=== PATIENT | female | born 1995 | race Caucasian/White ===

== ENCOUNTER 2021-11-21 14:27 | Outpatient (CLI) | payer BC | END 2021-11-21 14:28 | disposition home or self-care (01) | LOC: CSHMRI 14:27 | PROVIDERS: ATTEND Urology | DX: N36.8 Other specified disorders of urethra (principal); N89.8 Other specified noninflammatory disorders of vagina | CPT/HCPCS: 72197 ==

== ENCOUNTER 2022-03-18 13:07 | Outpatient (CLI) | payer OTHER | END 2022-03-18 13:08 | disposition home or self-care (01) | LOC: CSHULT 13:07 | PROVIDERS: ATTEND Family Medicine | DX: Z34.02 Encounter for supervision of normal first pregnancy, second trimester (principal); Z3A.20 20 weeks gestation of pregnancy | CPT/HCPCS: 76805 ==

== ENCOUNTER 2022-08-06 13:55 | Inpatient (IN) | payer OTHER ==
[2022-08-06 21:07] VITALS: BMI 25.4
[2022-08-06] MEDS ORDERED: Acetaminophen 500 MG TAB PO PRN (21:11)
[2022-08-06] MEDS ORDERED: Butorphanol Tartrate 1 MG/ML VIAL SLOW IVP PRN (21:11)
[2022-08-06] MEDS ORDERED: Ondansetron PF 4 MG/2 ML Vial IVP PRN (21:11)
[2022-08-06] MEDS ORDERED: Methylergonovine 0.2 MG/ML VIAL IM PRN (21:11)
[2022-08-06] MEDS ORDERED: Lidocaine 1% (PF) 30 ML VIAL SC PRN (21:11)
[2022-08-06] MEDS ORDERED: hydrALAZINE 20 MG/ML VIAL SLOW IVP PRN (21:11)
[2022-08-06] MEDS ORDERED: Tranexamic Acid 1,000 MG in Sodium Chloride 0.9% 250 ML 250 ML IVPB PRN (21:11)
[2022-08-06] MEDS ORDERED: Ibuprofen 800 MG TAB PO PRN (21:11)
[2022-08-06] MEDS ORDERED: Diphenoxylate HCl/Atropine Tablet PO PRN (21:11)
[2022-08-06] MEDS ORDERED: Misoprostol 200 MCG TAB PR PRN (21:11)
[2022-08-06] MEDS ORDERED: NS w/ Oxytocin 30 units 500 ML IV SCH (21:11)
[2022-08-06] MEDS ORDERED: Promethazine HCl 25 MG/ML VIAL IM PRN (21:11)
[2022-08-06] MEDS ORDERED: HYDROcodone/Acetaminophen 5/325 mg Tablet PO PRN (21:11)
[2022-08-06] MEDS ORDERED: Carboprost 250 MCG/ML AMP IM PRN (21:11)
[2022-08-06] MEDS: Lactated Ringer's 1,000 ML IV SCH (21:41)
[2022-08-06 22:03] LABS: Hemoglobin 9.4 g/dL (12.0-15.5); Mean Corpuscular HGB CONC 35.1 g/dL (32.0-36.0); Mean Corpuscular Hemoglobin 32.6 pg (27.0-33.0); Mean Corpuscular Volume 93.1 fl (81.6-98.3); Mean Platelet Volume 12.1 fl (7.4-10.4); Platelet Count 166 10x3/uL (150-450); RBC Distribution Width 12.3 % (11.5-14.5); Red Blood Cell (RBC) Count 2.88 10x6/uL (3.90-5.03); White Blood Cell (WBC) Count 8.7 10x3/uL (3.5-10.5)
[2022-08-06 23:01] LABS: SARS-CoV-2 NAA Rapid Test Not Detected (NotDetected)
[2022-08-06 23:38] LABS: Syphilis Antibody Nonreactive (Nonreactive); Syphilis Antibody Index 0.03 S/CO (<1.00 Non-Reactive)
[2022-08-06 23:40] LABS: HBSAg Index 0.16 S/CO (0-0.99); Hep B Surf Ag Non-Reactive S/CO (NonReactive)
[2022-08-07] MEDS: Misoprostol 100 MCG TAB VAG SCH (00:01)
[2022-08-07] MEDS: Lactated Ringer's 1,000 ML IV SCH (03:56)
[2022-08-07] MEDS ORDERED: Fentanyl 2 mcg/Bup 0.1% Cadd 100 ML ONE (09:44)
[2022-08-07] MEDS ORDERED: diphenhydrAMINE 50 MG/ML VIAL IVP PRN ×2 (10:23→18:24)
[2022-08-07] MEDS ORDERED: ePHEDrine Sulfate 50 MG/10 ML VIAL SLOW IVP PRN (10:23)
[2022-08-07] MEDS ORDERED: Moisturizing Cream (Eucerin) 113 GM JAR TOP PRN ×2 (10:23→18:24)
[2022-08-07] MEDS ORDERED: Lactated Ringer's 500 ML IV PRN (10:23)
[2022-08-07] MEDS ORDERED: Promethazine HCl 25 MG/ML VIAL IM PRN ×3 (10:23→22:31)
[2022-08-07] MEDS ORDERED: Naloxone HCl 0.4 mg/ml Vial IVP PRN ×4 (10:23→18:24)
[2022-08-07] MEDS ORDERED: Acetaminophen 325 MG TAB PO PRN (10:23)
[2022-08-07] MEDS ORDERED: Ondansetron PF 4 MG/2 ML Vial IVP PRN ×3 (10:23→22:31)
[2022-08-07] MEDS ORDERED: Communication Order-Pharmacy FS SCH ×2 (10:30→18:30)
[2022-08-07] MEDS ORDERED: Fentanyl 2 mcg/Bupivacaine 0.1% Cassette 100 ML EPIDURAL SCH (10:30)
[2022-08-07] MEDS ORDERED: CEFAZOLIN 2 GM VIAL ONE (17:14)
[2022-08-07] MEDS ORDERED: Azithromycin 500 MG VIAL ONE (17:14)
[2022-08-07] MEDS ORDERED: CEFAZOLIN 2 GM in Sodium Chloride 0.9% 100 ML IVPB SCH (17:15)
[2022-08-07] MEDS ORDERED: Famotidine/PF 20 mg/2ml Vial SLOW IVP PRN (17:15)
[2022-08-07] MEDS ORDERED: Azithromycin 500 MG in Sodium Chloride 0.9% 250 ML 250 ML IVPB SCH (17:15)
[2022-08-07] MEDS ORDERED: Bicitra 30 ML UDCUP PO PRN (17:15)
[2022-08-07] MEDS ORDERED: Bupivacaine PF 0.5% 30 ML VIAL ONE (17:17)
[2022-08-07] MEDS ORDERED: Lidocaine 2% PF 100 mg/5 ml Syringe ONE (17:17)
[2022-08-07] MEDS ORDERED: Fentanyl 100 MCG/2 ML VIAL ONE (17:18)
[2022-08-07] MEDS ORDERED: Phenylephrine 10 MG/ML VIAL ONE (17:39)
[2022-08-07] MEDS ORDERED: Oxytocin 10 UNITS/ML VIAL ONE (17:40)
[2022-08-07] MEDS ORDERED: Morphine PF 10 MG/10 ML VIAL ONE (18:04)
[2022-08-07] MEDS ORDERED: Naloxone HCl 0.4 mg/ml Vial IV PRN (18:24)
[2022-08-07] MEDS ORDERED: Promethazine HCl 25 MG SUPP PR PRN (18:24)
[2022-08-07] MEDS ORDERED: Ketorolac Tromethamine 30 MG/ML VIAL IVP PRN (18:24)
[2022-08-07] MEDS ORDERED: Ketorolac Tromethamine 30 MG/ML VIAL ONE (18:33)
[2022-08-07] MEDS ORDERED: Bisacodyl 10 MG SUPP PR PRN (22:31)
[2022-08-07] MEDS ORDERED: NS w/ Oxytocin 30 units 500 ML IV SCH (22:31)
[2022-08-07] MEDS ORDERED: Boostrix 0.5 ML (Tdap) VIAL (>/=7 yrs of age) IM ONE (22:31)
[2022-08-07] MEDS ORDERED: diphenhydrAMINE 25 MG CAP PO PRN (22:31)
[2022-08-07] MEDS ORDERED: hydrALAZINE 20 MG/ML VIAL SLOW IVP PRN (22:31)
[2022-08-07] MEDS ORDERED: Ferrous Sulfate 325 MG TAB PO SCH (22:45)
[2022-08-07] MEDS ORDERED: Docusate 100 MG CAP PO SCH (22:45)
[2022-08-07] MEDS: Simethicone Chewable 80 MG TAB PO PRN (23:59)
[2022-08-07] MEDS: Ketorolac Tromethamine 30 MG/ML VIAL IVP SCH (23:59)
[2022-08-08 04:06] LABS: Hemoglobin 8.1 g/dL (12.0-15.5); Mean Corpuscular HGB CONC 35.7 g/dL (32.0-36.0); Mean Corpuscular Hemoglobin 32.7 pg (27.0-33.0); Mean Corpuscular Volume 91.5 fl (81.6-98.3); Mean Platelet Volume 11.8 fl (7.4-10.4); Platelet Count 138 10x3/uL (150-450); RBC Distribution Width 12.4 % (11.5-14.5); Red Blood Cell (RBC) Count 2.48 10x6/uL (3.90-5.03)
[2022-08-08] MEDS: Simethicone Chewable 80 MG TAB PO PRN ×3 (06:04→18:05)
[2022-08-08] MEDS: Ketorolac Tromethamine 30 MG/ML VIAL IVP SCH ×3 (06:05→18:05)
[2022-08-08] MEDS: HYDROcodone/Acetaminophen 5/325 mg Tablet PO PRN ×4 (08:14→23:03)
[2022-08-08] MEDS: Ferrous Sulfate 325 MG TAB PO SCH ×2 (08:14→20:58)
[2022-08-08] MEDS: Prenatal Vitamin 1 TAB PO SCH (08:14)
[2022-08-08] MEDS: Docusate 100 MG CAP PO SCH ×2 (08:14→20:58)
[2022-08-08] MEDS: Lactated Ringer's 1,000 ML IV SCH (09:30)
[2022-08-08] MEDS: Misoprostol 100 MCG TAB VAG SCH (09:30)
[2022-08-08] MEDS ORDERED: Cyclobenzaprine 10 MG TAB PO SCH (15:30)
[2022-08-08] MEDS ORDERED: Ibuprofen 800 MG TAB PO SCH (22:00)
[2022-08-08] MEDS: Ibuprofen 800 MG TAB PO SCH (23:02)
[2022-08-09] MEDS: HYDROcodone/Acetaminophen 5/325 mg Tablet PO PRN ×3 (06:36→19:45)
[2022-08-09] MEDS: Prenatal Vitamin 1 TAB PO SCH (08:29)
[2022-08-09] MEDS: Docusate 100 MG CAP PO SCH ×2 (08:30→23:56)
[2022-08-09] MEDS: Ibuprofen 800 MG TAB PO SCH ×3 (08:30→23:56)
[2022-08-09] MEDS: Ferrous Sulfate 325 MG TAB PO SCH ×2 (08:31→23:56)
[2022-08-10] MEDS: HYDROcodone/Acetaminophen 5/325 mg Tablet PO PRN ×2 (08:11→13:00)
[2022-08-10] MEDS: Prenatal Vitamin 1 TAB PO SCH (08:12)
[2022-08-10] MEDS: Ferrous Sulfate 325 MG TAB PO SCH (08:12)
[2022-08-10] MEDS: Docusate 100 MG CAP PO SCH (08:12)
[2022-08-10] MEDS: Ibuprofen 800 MG TAB PO SCH (08:12)
[2022-08-10 08:39] VITALS: BP 131/83; TEMP 97.9
== END 2022-08-10 14:05 | disposition home or self-care (01) | DRG 788 ==
LOC: CSHLD 20:10 → CSHPP 08-07 21:15
PROVIDERS: ADMIT Family Medicine; ATTEND Family Medicine
PROC: 10D00Z1 Extraction of Products of Conception, Low, Open Approach (ICD-10-PCS; principal; 2022-08-07)
PROC: 10907ZC Drainage of Amniotic Fluid, Therapeutic from Products of Conception, Via Natural or Artificial Opening (ICD-10-PCS; 2022-08-07)
PROC: 3E0P7VZ Introduction of Hormone into Female Reproductive, Via Natural or Artificial Opening (ICD-10-PCS; 2022-08-07)
DX: O32.8XX0 Maternal care for other malpresentation of fetus, not applicable or unspecified (principal); O76 Abnormality in fetal heart rate and rhythm complicating labor and delivery; Z37.0 Single live birth; Z79.899 Other long term (current) drug therapy; Z3A.40 40 weeks gestation of pregnancy; Z20.822 Contact with and (suspected) exposure to COVID-19; O75.81 Maternal exhaustion complicating labor and delivery
CPT/HCPCS: 36415; 51702; 85027; 86780; 86850; 86900; 86901; 87340; J0595; J1885; J2001; J2274; J2370; J2405; J2590; J3010; J7120; S0020; U0002